=== PATIENT | male | born 1970 ===

== ENCOUNTER 2018-03-19 21:20 | Emergency (ER) | payer OTHER ==
[~2018-03-19] VITALS: Ht 180.3 cm; Wt 117.9 kg
[2018-03-19] MEDS: LIDOCAINE HCL 2% 20 ML VIAL TP ONE (22:01)
--- NOTE | 2018-03-19 22:02 | NUR ---
Patient discharged to home in stable conditon. Written and verbal after care instructions given. Patient verbalizes understanding of instructions.
== END 2018-03-19 22:02 | disposition home or self-care (01) ==
LOC: ER 21:22
DX: S01.111A Laceration without foreign body of right eyelid and periocular area, initial encounter (principal); F12.10 Cannabis abuse, uncomplicated; W26.8XXA Contact with other sharp object(s), not elsewhere classified, initial encounter; Y93.89 Activity, other specified; Y92.89 Other specified places as the place of occurrence of the external cause; Y99.8 Other external cause status
CPT/HCPCS: A4663

== ENCOUNTER 2018-03-26 15:08 | Emergency (ER) | END 2018-03-26 16:06 | disposition home or self-care (01) | DX: S01.111D Laceration without foreign body of right eyelid and periocular area, subsequent encounter (principal); F12.10 Cannabis abuse, uncomplicated; X58.XXXD Exposure to other specified factors, subsequent encounter ==